=== PATIENT | female | born 1950 | race Caucasian/White ===

== ENCOUNTER 2019-02-23 05:37 | Observation (INO) | payer MEDICARE, BC ==
[2019-02-21 10:17] LABS: BASOPHILS % (AUTO) 0.6 % (0-1); EOSINOPHILS % (AUTO) 0.7 % (0-6); LYMPHOCYTES # (AUTO) 1.3 X10'3 (1.1-4.8); MEAN CORPUSCULAR HEMOGLOBIN 31.8 PG (27.0-31.0); MEAN CORPUSCULAR HGB CONC 33.7 g/dL (33.0-36.5); MEAN CORPUSCULAR VOLUME 94.4 FL (78-98); MEAN PLATELET VOLUME 7.8 FL (7.4-10.4); MONOCYTES # (AUTO) 0.5 X10'3 (0-0.9); MONOCYTES % (AUTO) 7.8 % (2-12); NEUTROPHILS # (AUTO) 5.1 X10'3 (1.8-7.7); NEUTROPHILS % (AUTO) 72.9 % (42-75); PRE OP HEMATOCRIT 43.4 % (35.0-45.0); PRE OP HEMOGLOBIN 14.6 g/dL (12.0-16.0); PRE OP PLATELET COUNT 260 X10'3 (140-440); RED CELL DISTRIBUTION WIDTH 13.6 % (11.5-14.5)
[2019-02-21 10:25] LABS: ALBUMIN 3.9 G/DL (3.4-5.0); ALBUMIN/GLOBULIN RATIO 1.3 (1.1-1.5); ALKALINE PHOSPHATASE 67 IU/L (46-116); BLOOD UREA NITROGEN 17 MG/DL (7-18); BUN/CREATININE RATIO 19.3 (6.6-38.0); CALCIUM 8.5 MG/DL (8.5-10.1); CHLORIDE 106 MMOL/L (99-107); CREATININE 0.88 MG/DL (0.40-0.90); PRE OP ALT 19 U/L (30-65); PRE OP ANION GAP 6 (8-16); PRE OP AST 12 U/L (10-37); PRE OP BILIRUB, TOTAL 0.5 MG/DL (0.0-1.0); PRE OP GLUCOSE 126 MG/DL (70-104); PRE OP POTASSIUM 3.6 MMOL/L (3.4-5.1); PRE OP SODIUM 143 MMOL/L (135-145); TOTAL CARBON DIOXIDE 31.1 MMOL/L (24-32); eGFR 64 ML/MIN
[2019-02-21 10:27] LABS: PRE OP INR 1.1 INR; PRE OP PROTIME 10.8 SECONDS (9.0-12.0)
[2019-02-21 10:44] LABS: CLARITY,URINE SLIGHTLY CLOUDY (Clear); COLOR,URINE YELLOW (Yellow); GLUCOSE, URINE NEGATIVE (Neg); KETONES,URINE NEGATIVE (Neg); LEUKOCYTE ESTERASE ,URINE NEGATIVE (Neg); NITRITES, URINE NEGATIVE (Neg); OCCULT BLOOD,URINE SMALL (Neg); PH,URINE 5.5 (4.8-8.0); PROTEIN,URINE NEGATIVE (Neg); UROBILINOGEN,URINE 0.2 E.U/dL (0.2-1.0)
[2019-02-21 11:06] LABS: UA COLLECTION TYPE CLN CATCH MIDSTREAM
[2019-02-21 11:27] LABS: WBC,URINE NONE SEEN /HPF (0-4)
[2019-02-21 11:28] LABS: BACTERIA,URINE NONE SEEN /HPF (Neg); RBC,URINE 0-2 /HPF (0-2)
[2019-02-21 11:29] LABS: SQUAMOUS EPITHELIAL CELL,UR FEW /LPF (FEW)
[~2019-02-23] VITALS: Ht 162.6 cm; Wt 55.2 kg
[2019-02-23] VITALS (20 sets, daily range): BP systolic 113–159; BP diastolic 43–81
[~2019-02-23 05:37] MED LIST: ALBU18HF2 INH; CALCIUM PO; CHOL200012 PO; ESTR0.5T4 PO; LISI-600 PO; MEDR2.5T PO; PANT-47 PO; TEMA15CA5 PO; albuterol 2.5 MG/3 ML nebule NEB ONE; ceFOXitin 2 GM ADDVANTGE BAG 50 ML IV ONE; famotidine 20mg tablet PO ONE; tranexamic acid inj. 1,000 MG in normal saline 100 ML IV ONE
[2019-02-23] MEDS: ringers solution, lacted 1,000 ML IV SCH ×4 (06:15→22:09)
[2019-02-23] MEDS ORDERED: LIDOcaine 1% (10mg/ml) 2ml vial ONE (06:26)
[2019-02-23] MEDS ORDERED: BUPIVAcaine/PF 2.5 mg/ml (0.25%) 30ml vial ONE (06:50)
[2019-02-23] MEDS ORDERED: fentaNYL/PF 50MCG/1 ML 2ML syringe ONE (07:18)
[2019-02-23] MEDS ORDERED: midazolam 2 mg/2 ml injection ONE (07:19)
[2019-02-23] MEDS ORDERED: rocuronium 10mg/ml inj IV ONE (07:20)
[2019-02-23] MEDS ORDERED: LIDOcaine 2% (20mg/ml) 5ml vial ONE (07:20)
[2019-02-23] MEDS ORDERED: glycopyrrolate 0.2mg/ml inj ONE (07:20)
[2019-02-23] MEDS ORDERED: neostigmine methylsulfate 1 MG/ML 10ml vial ONE (07:20)
[2019-02-23] MEDS ORDERED: propofol inj 20 ML IV ONE (07:20)
[2019-02-23] MEDS ORDERED: ondansetron/PF 4mg/2ml inj ONE (07:20)
[2019-02-23] MEDS ORDERED: dexamethasone sod phosphate 4mg/ml inj. ONE (07:20)
[2019-02-23] MEDS ORDERED: tranexamic acid inj. 1,000 MG in normal saline 100ml IV soln 100 ML IV ONE (07:20)
[2019-02-23] MEDS ORDERED: acetaminophen 1,000mg/100ml IV 100 ML IV ONE (07:20)
[2019-02-23] MEDS ORDERED: ringers solution, lacted 1,000 ML IV SCH (07:50)
[2019-02-23] MEDS ORDERED: ondansetron/PF 4mg/2ml inj IV PRN ×2 (07:50→11:50)
[2019-02-23] MEDS ORDERED: fentaNYL/PF 50MCG/1 ML 2ML syringe IV PRN (07:50)
[2019-02-23] MEDS ORDERED: labetalol 20mg/4ml (5mg/ml) syringe IV PRN (07:50)
[2019-02-23] MEDS ORDERED: hydrALAZINE 20mg/ml inj. IV PRN (07:50)
[2019-02-23] MEDS ORDERED: morphine 4 MG/ML inj SYRINge IV PRN ×2 (07:50)
[2019-02-23] MEDS ORDERED: hydrALAZINE 20mg/ml inj. IV ONE (07:53)
[2019-02-23] MEDS ORDERED: labetalol 20mg/4ml (5mg/ml) syringe IV ONE (08:02)
--- NOTE | 2019-02-23 09:30 | NUR ---
Received from OR via BED , accompanied by Anesthesiologist DR JEREZ and report given by Anesthesiolgist. PATIENT WAKING UP, C/O PAIN SEE EMAR, V/S WNL, NEUROVASCULAR CHECKS INTACT, 20G PIV RUE, SCD ON, 3 BANDAIDS TO LAP SIGHTS OF ABDOMEN WITH PERIPAD WITH SCANT DRAINAGE CDI.
[2019-02-23] MEDS: fentaNYL/PF 50MCG/1 ML 2ML syringe IV PRN ×3 (09:45→15:32)
[2019-02-23] MEDS ORDERED: oxyCODONE/APAP 10/325mg tablet PO ONE (10:00)
[2019-02-23] MEDS ORDERED: scopolamine 1.5mg patch.TD72 TD ONE (10:45)
[2019-02-23] MEDS ORDERED: metoclopramide 5 mg/ml inj IV PRN ×2 (11:45→11:50)
[2019-02-23] MEDS ORDERED: proCHLORperazine 10 MG/2 ml inj IV PRN (11:45)
[2019-02-23] MEDS ORDERED: HYDROcodone/acetaminophen 10/325mg tab PO PRN (11:50)
--- NOTE | 2019-02-23 12:40 | NUR ---
PATIENT A&OX4, STATES PAIN AND NAUSEA CONTROLLED NOW SEE EMAR, V/S WNL, NEUROVASCULAR CHECKS INTACT, 20G PIV RUE, SCD ON, 3 BANDAIDS TO LAP SIGHTS OF ABDOMEN WITH PERIPAD WITH SCANT DRAINAGE CDI. PATIENT HAS VOIDED.PATIENT TAKEN TO 347A WITH ALL BELONGINGS AND HOOKED UP TO MONITORS IN ROOM AND REPORT GIVEN TO RN WHO HAS TAKEN OVER PATIENT CARE.
--- NOTE | 2019-02-23 19:00 | NUR ---
Patient in room [facility]. I have received report from Esthela COPELAND and had the opportunity to ask questions and assume patient care.
--- NOTE | 2019-02-23 19:19 | NUR ---
Problems reprioritized. Patient report given, questions answered & plan of care reviewed with Pilar COPELAND.
[2019-02-23] MEDS: ibuprofen 200mg tablet PO PRN (21:36)
[2019-02-24] MEDS: ringers solution, lacted 1,000 ML IV SCH (03:46)
[2019-02-24] MEDS: ibuprofen 200mg tablet PO PRN (03:54)
--- NOTE | 2019-02-24 06:44 | NUR ---
Patient in room [facility]. I have received report from DINORAH La and had the opportunity to ask questions and assume patient care.
--- NOTE | 2019-02-24 06:58 | NUR ---
Problems reprioritized. Patient report given, questions answered & plan of care reviewed with Christina COPELAND.
[2019-02-24 07:00] VITALS: BP 130/57
[2019-02-24] MEDS ORDERED: TEMA15CA PO (08:14)
[2019-02-24] MEDS ORDERED: temazepam 15mg capsule PO PRN (08:15)
[2019-02-24] MEDS ORDERED: albuterol 2.5 MG/3 ML nebule NEB PRN (08:35)
[2019-02-24] MEDS ORDERED: OXYC-150 PO (09:42)
--- NOTE | 2019-02-24 10:54 | NUR ---
Pt discharged to home at 1040, with all belongings, in private vehicle accompanied by . Discharge instructions and medications reviewed. Pt instructed to follow up with Dr Rodríguez in 2 weeks, office number already given to pt. Post-care instructions provided and reviewed, pt states understanding and compliance. IV DC'd, cannula intact. Pt escorted to front lobby via wheelchair by PCT.
[2019-02-25] MEDS ORDERED: lisinopril 20mg tablet PO SCH (08:00)
[2019-02-25] MEDS ORDERED: vitamin D (cholecalciferol) 1,000 unit tablet PO SCH (08:00)
[2019-02-25] MEDS ORDERED: pantoprazole 40mg Tablet.DR PO SCH (08:00)
[2019-02-25] MEDS ORDERED: calcium carbonate 500mg tablet PO SCH (08:00)
[2019-02-25] MEDS ORDERED: medroxyprogesterone acet. 2.5mg tablet PO SCH (08:00)
== END 2019-02-24 10:40 | disposition home or self-care (01) ==
LOC: PAS 05:37 → SUR 3N 11:50
PROVIDERS: ADMIT Obstetrics & Gynecology; ATTEND Obstetrics & Gynecology
PROC: 0UT94ZZ Resection of Uterus, Percutaneous Endoscopic Approach (ICD-10-PCS; principal; 2019-02-23 07:19)
DX: D25.0 Submucous leiomyoma of uterus (principal); D25.9 Leiomyoma of uterus, unspecified
CPT/HCPCS: 36415; 58571; 80053; 81001; 82948; 85025; 85610; 85730; 86885; 86900; 86901; 93005; 96374; 96375; C1758; G0378; J0131; J0360; J0694; J0780; J1100; J2001; J2250; J2270; J2405; J2704; J2710; J2765; J3010; J3490; J7120; S2900; 88307; A4618; A7000

== ENCOUNTER 2019-10-10 12:00 | Outpatient (CLI) | payer MEDICARE, BC ==
[~2019-10-10 12:00] MED LIST changes: +OXYC-150 PO; +TEMA15CA PO; -TEMA15CA5 PO; -albuterol 2.5 MG/3 ML nebule NEB ONE; -ceFOXitin 2 GM ADDVANTGE BAG 50 ML IV ONE; -famotidine 20mg tablet PO ONE; -tranexamic acid inj. 1,000 MG in normal saline 100 ML IV ONE
[2019-10-10 12:47] LABS: BASOPHILS % (AUTO) 0.6 % (0-1); EOSINOPHILS % (AUTO) 0.5 % (0-6); HEMATOCRIT 40.8 % (35.0-45.0); HEMOGLOBIN 13.9 g/dl (12.0-16.0); LYMPHOCYTES # (AUTO) 1.6 X10'3 (1.1-4.8); LYMPHOCYTES % (AUTO) 20.3 % (21-51); MEAN CORPUSCULAR HEMOGLOBIN 32.1 PG (27.0-31.0); MEAN CORPUSCULAR VOLUME 94.2 FL (78-98); MONOCYTES # (AUTO) 0.7 X10'3 (0-0.9); MONOCYTES % (AUTO) 8.8 % (2-12); NEUTROPHILS # (AUTO) 5.3 X10'3 (1.8-7.7); NEUTROPHILS % (AUTO) 69.8 % (42-75); PLATELET COUNT 274 X10'3 (140-440); RED BLOOD COUNT 4.33 X10'6 (4.20-5.60); RED CELL DISTRIBUTION WIDTH 13.4 % (11.5-14.5); WHITE BLOOD COUNT 7.7 X10'3 (4.5-11.0)
[2019-10-10 12:56] LABS: ALBUMIN 3.7 G/DL (3.4-5.0); ANION GAP 2 (8-16); BLOOD UREA NITROGEN 17 MG/DL (7-18); BUN/CREATININE RATIO 20.7 (6.6-38.0); CHLORIDE 107 MMOL/L (99-107); CREATININE 0.82 MG/DL (0.40-0.90); GLUCOSE 75 MG/DL (70-104); POTASSIUM 4.3 MMOL/L (3.5-5.1); SODIUM 143 MMOL/L (135-145); TOTAL CARBON DIOXIDE 34.1 MMOL/L (24-32); eGFR 70 ML/MIN
== END 2019-10-10 23:59 | disposition home or self-care (01) ==
LOC: SSTAY O 12:00 → EDSTATUS 10-11 09:00
PROVIDERS: ATTEND Internal Medicine Cardiovascular Disease
DX: I34.0 Nonrheumatic mitral (valve) insufficiency (principal)
CPT/HCPCS: 36415; 80048; 85025; 85610

== ENCOUNTER 2019-11-22 06:54 | Day surgery (SDC) | payer MEDICARE, BC ==
[2019-11-21 11:52] LABS: BASOPHILS % (AUTO) 0.7 % (0-1); EOSINOPHILS % (AUTO) 0.5 % (0-6); HEMATOCRIT 40.8 % (35.0-45.0); HEMOGLOBIN 13.7 g/dl (12.0-16.0); LYMPHOCYTES # (AUTO) 1.7 X10'3 (1.1-4.8); LYMPHOCYTES % (AUTO) 24.3 % (21-51); MEAN CORPUSCULAR HEMOGLOBIN 31.8 PG (27.0-31.0); MEAN CORPUSCULAR HGB CONC 33.6 g/dL (33.0-36.5); MEAN CORPUSCULAR VOLUME 94.7 FL (78-98); MEAN PLATELET VOLUME 7.6 FL (7.4-10.4); MONOCYTES # (AUTO) 0.5 X10'3 (0-0.9); NEUTROPHILS # (AUTO) 4.5 X10'3 (1.8-7.7); NEUTROPHILS % (AUTO) 66.5 % (42-75); PLATELET COUNT 273 X10'3 (140-440); RED BLOOD COUNT 4.31 X10'6 (4.20-5.60); RED CELL DISTRIBUTION WIDTH 13.4 % (11.5-14.5); WHITE BLOOD COUNT 6.8 X10'3 (4.5-11.0)
[2019-11-21 11:57] LABS: ALBUMIN 3.8 G/DL (3.4-5.0); ANION GAP 6 (8-16); BLOOD UREA NITROGEN 16 MG/DL (7-18); CHLORIDE 105 MMOL/L (99-107); CREATININE 0.84 MG/DL (0.40-0.90); GLUCOSE 61 MG/DL (70-104); POTASSIUM 3.9 MMOL/L (3.5-5.1); SODIUM 143 MMOL/L (135-145); eGFR 67 ML/MIN
[~2019-11-22] VITALS: Ht 167.6 cm; Wt 53.9 kg
[2019-11-22] VITALS (19 sets, daily range): BP systolic 107–196; BP diastolic 54–98
[2019-11-22] MEDS ORDERED: VIT1CAPS9 PO (07:27)
[2019-11-22] MEDS ORDERED: CALC-336 PO (07:27)
[2019-11-22] MEDS ORDERED: GLUC-95 PO (07:27)
[2019-11-22] MEDS ORDERED: morphine 10mg/ml inj. IV ONE (07:30)
[2019-11-22] MEDS ORDERED: normal saline 1000ml 1,000 ML IV SCH (07:30)
[2019-11-22] MEDS ORDERED: MIDAZolam 1mg/ml 10ml vial IV ONE (07:30)
== END 2019-11-22 10:25 | disposition home or self-care (01) ==
LOC: SSTAY O 06:54
PROVIDERS: ATTEND Internal Medicine Cardiovascular Disease
DX: I08.1 Rheumatic disorders of both mitral and tricuspid valves (principal); I10 Essential (primary) hypertension; E78.5 Hyperlipidemia, unspecified; F41.9 Anxiety disorder, unspecified; Z79.899 Other long term (current) drug therapy; Z98.890 Other specified postprocedural states; Z72.89 Other problems related to lifestyle; Z80.9 Family history of malignant neoplasm, unspecified; Z80.49 Family history of malignant neoplasm of other genital organs
CPT/HCPCS: 36415; 80048; 85025; 85610; 93312; 93325; 94760; J2250; J2270; J7030

== ENCOUNTER 2022-08-10 14:44 | Outpatient (CLI) | payer MEDICARE, BC ==
[~2022-08-10 14:44] MED LIST changes: -ALBU18HF2 INH; +CALC-336 PO; -CALCIUM PO; +GLUC-95 PO; -LISI-600 PO; +LISI20TA28 PO; -MEDR2.5T PO; -OXYC-150 PO; -TEMA15CA PO; +VIT1CAPS9 PO
== END 2022-08-10 23:59 | disposition home or self-care (01) ==
LOC: RAD 14:44
PROVIDERS: ATTEND Internal Medicine Cardiovascular Disease
DX: I08.8 Other rheumatic multiple valve diseases (principal); R06.02 Shortness of breath
CPT/HCPCS: 93306